=== PATIENT | male | born 1955 | race African-American/Black ===

== ENCOUNTER 2024-04-12 22:24 | Inpatient (IN) | payer MEDICARE ==
[~2024-04-12] VITALS: Ht 177.8 cm; Wt 68.5 kg
[2024-04-12] MEDS ORDERED: QUET25TA PO (22:29)
[2024-04-12] MEDS ORDERED: QUET50TA PO (22:29)
[2024-04-13 00:47] LABS: BASOPHILS # (AUTO) 0.1 K/UL (0.0-0.2); BASOPHILS % (AUTO) 4.3 % (0.0-2.0); EOSINOPHILS # (AUTO) 0.2 K/uL (0.0-0.7); EOSINOPHILS % (AUTO) 5.6 % (0.0-7.0); LYMPHOCYTES # (AUTO) 1.2 K/uL (0.8-4.8); LYMPHOCYTES % (AUTO) 38.4 % (20.5-51.5); MEAN CORPUSCULAR HEMOGLOBIN 28.8 uug (23.8-33.4); MEAN CORPUSCULAR HGB CONC 33 g/dL (32.5-36.3); MEAN CORPUSCULAR VOLUME 88.7 fL (73.0-96.2); MONOCYTES # (AUTO) 0.3 K/uL (0.1-1.30); MONOCYTES % (AUTO) 10.2 % (0.0-11.0); NEUTROPHILS # (AUTO) 1.3 K/uL (1.8-8.9); NEUTROPHILS % (AUTO) 41.5 % (38.5-71.5); PLATELET COUNT (AUTO) 181 K/uL (152-348); RED BLOOD CELL COUNT(AUTO) 4.85 MIL/uL (4.06-5.63); RED CELL DISTRIBUTION WIDTH 13.4 % (12.1-16.2); WHITE BLOOD COUNT (AUTO) 3.1 K/uL (3.6-10.2)
[2024-04-13 01:02] LABS: DIFFERENTIAL COMMENT 1
[2024-04-13 01:17] LABS: ALBUMIN 2.9 g/dL (3.4-5.0); BILIRUBIN,TOTAL 0.5 mg/dL (0.2-1.0); CALCIUM 8.6 mg/dL (8.5-10.1); CREATININE 0.8 mg/dL (0.6-1.3); POTASSIUM 4.1 mmol/L (3.5-5.1); TOTAL PROTEIN, SERUM 6.1 g/dL (6.4-8.2)
[2024-04-13] MEDS ORDERED: PERMETHRIN 5% CREAM 60 GM TUBE TP ONE (05:48)
[2024-04-13] MEDS: PERMETHRIN 5% CREAM 60 GM TUBE TP ONE (06:00)
[2024-04-13] MEDS ORDERED: MAGNESIUM HYDROXIDE 30 ML LIQUID UDC PO PRN (10:00)
[2024-04-13] MEDS ORDERED: ACETAMINOPHEN 500 MG TABLET PO PRN (10:00)
[2024-04-13] MEDS ORDERED: TEMAZEPAM 7.5 MG CAPSULE PO PRN (10:00)
[2024-04-13] MEDS ORDERED: MAG HYDROX/AL HYDROX/SIMETH 30 ML LIQUID UDC PO PRN (10:00)
[2024-04-13] MEDS ORDERED: CLONAZEPAM 0.5 MG TABLET PO PRN (10:00)
[2024-04-13] MEDS: BLOOD SUGAR DIAGNOSTIC 1 EACH STRIP VI ONE (10:06)
[2024-04-13 12:08] VITALS: BP 157/87; TEMP 98.2; O2SAT 98
[2024-04-13 15:10] VITALS: BP 143/95; TEMP 98.4; O2SAT 98
[2024-04-13] MEDS: diphenhydrAMINE 50 MG/1 ML VIAL IM ONE (18:12)
[2024-04-13] MEDS: HALOPERIDOL LACTATE 5 MG/1 ML VIAL IM ONE (18:12)
[2024-04-13 20:00] VITALS: BP 140/90; TEMP 98.1; O2SAT 100
[2024-04-14 08:24] VITALS: BP 144/91; TEMP 97.9; O2SAT 99
[2024-04-14] MEDS: QUETIAPINE FUMARATE 25 MG TABLET PO SCH ×2 (15:48→20:42)
[2024-04-14 16:28] VITALS: BP 126/86; TEMP 98.3; O2SAT 97
[2024-04-14 20:00] VITALS: BP 123/75; TEMP 98.2; O2SAT 99
[2024-04-15 07:53] VITALS: BP 148/98; TEMP 97.8; O2SAT 98
[2024-04-15 16:28] VITALS: BP 144/90; TEMP 97.9; O2SAT 98
[2024-04-15] MEDS: QUETIAPINE FUMARATE 25 MG TABLET PO SCH (16:34)
[2024-04-15 20:02] VITALS: BP 142/88; TEMP 97.8; O2SAT 96
[2024-04-16 08:19] VITALS: BP 126/80; TEMP 97.9; O2SAT 98
[2024-04-16] MEDS ORDERED: CLONAZEPAM 0.5 MG TABLET PO PRN (10:15)
[2024-04-16 11:20] LABS: ALBUMIN 2.9 g/dL (3.4-5.0); BILIRUBIN,TOTAL 1.2 mg/dL (0.2-1.0); CALCIUM 8.5 mg/dL (8.5-10.1); CREATININE 0.8 mg/dL (0.6-1.3); POTASSIUM 3.8 mmol/L (3.5-5.1); TOTAL PROTEIN, SERUM 6.3 g/dL (6.4-8.2)
[2024-04-16] MEDS: QUETIAPINE FUMARATE 25 MG TABLET PO SCH (13:00)
[2024-04-16 16:08] VITALS: BP 134/83; TEMP 97.9; O2SAT 98
[2024-04-16 19:37] VITALS: BP 130/74; TEMP 98.1; O2SAT 96
[2024-04-17 07:50] VITALS: BP 146/97; TEMP 98; O2SAT 96
[2024-04-17 15:42] VITALS: BP 116/81; TEMP 98; O2SAT 96
[2024-04-17 19:57] VITALS: BP 136/76; TEMP 98.1; O2SAT 96
[2024-04-17] MEDS: QUETIAPINE FUMARATE 25 MG TABLET PO SCH (20:37)
[2024-04-18 07:51] VITALS: BP 129/90; TEMP 98; O2SAT 98
[2024-04-18] MEDS ORDERED: LORAZEPAM 1 MG TABLET PO PRN (12:45)
[2024-04-18] MEDS: risperiDONE-M 0.5 MG TAB.RAPDIS PO SCH (13:29)
[2024-04-18 16:34] VITALS: BP 126/78; TEMP 98; O2SAT 99
[2024-04-18 19:59] VITALS: BP 124/72; TEMP 97.9; O2SAT 96
[2024-04-19 07:52] VITALS: BP 141/92; TEMP 98.2; O2SAT 99
[2024-04-19] MEDS: OLANZAPINE ZYDIS 5 MG TAB.RAPDIS PO SCH (10:00)
[2024-04-19] MEDS ORDERED: OLANZAPINE ZYDIS 5 MG TAB.RAPDIS PO PRN (10:00)
[2024-04-19 15:01] VITALS: BP 139/89; TEMP 98; O2SAT 99
[2024-04-20 07:46] VITALS: BP 159/96; TEMP 98; O2SAT 98
[2024-04-20 16:02] VITALS: BP 139/96; TEMP 98.4; O2SAT 100
[2024-04-20 20:00] VITALS: BP 135/95; TEMP 98.1; O2SAT 99
[2024-04-20] MEDS ORDERED: QUETIAPINE FUMARATE 25 MG TABLET PO PRN (20:45)
[2024-04-21] MEDS: QUETIAPINE FUMARATE 25 MG TABLET PO SCH (09:00)
[2024-04-21] MEDS: PERMETHRIN 5% CREAM 60 GM TUBE TP ONE (11:30)
[2024-04-23] MEDS: QUETIAPINE FUMARATE 25 MG TABLET PO SCH ×2 (13:00→20:46)
[2024-04-24 07:40] VITALS: BP 143/109; TEMP 98.2; O2SAT 98
[2024-04-24] MEDS ORDERED: CLONIDINE HCL 0.1 MG TABLET PO PRN (10:45)
[2024-04-24 15:38] VITALS: BP 106/80; TEMP 98.2; O2SAT 100
[2024-04-24] MEDS: QUETIAPINE FUMARATE 25 MG TABLET PO SCH (16:54)
[2024-04-24 19:58] VITALS: BP 126/76; TEMP 98.1; O2SAT 98
[2024-04-25] MEDS: PERMETHRIN 5% CREAM 60 GM TUBE TP ONE (13:33)
[2024-04-25] MEDS: OLANZAPINE 10 MG VIAL IM ONE (14:32)
[2024-04-26 07:46] VITALS: BP 161/114; TEMP 98; O2SAT 96
[2024-04-26] MEDS: risperiDONE-M 0.5 MG TAB.RAPDIS PO SCH (11:09)
[2024-04-26 15:51] VITALS: BP 95/53; TEMP 98; O2SAT 93
[2024-04-27 08:05] VITALS: BP 138/88; TEMP 97.7; O2SAT 100
[2024-04-27] MEDS ORDERED: risperiDONE-M 0.5 MG TAB.RAPDIS PO SCH (09:00)
[2024-04-27] MEDS: risperiDONE-M 0.5 MG TAB.RAPDIS PO SCH ×2 (09:01→17:41)
[2024-04-27 15:12] VITALS: BP 124/80; TEMP 98; O2SAT 100
[2024-04-27 20:04] VITALS: BP 130/78; TEMP 98.1; O2SAT 99
[2024-04-28] MEDS: risperiDONE 2 MG TABLET PO SCH (09:01)
[2024-04-28 16:23] VITALS: BP 129/81; TEMP 98; O2SAT 98
[2024-04-28 20:00] VITALS: BP 125/89; TEMP 97.7; O2SAT 100
[2024-04-29 07:40] VITALS: BP 142/99; TEMP 98.1; O2SAT 98
[2024-04-29 17:00] VITALS: BP 129/85; TEMP 98; O2SAT 98
[2024-04-29 19:57] VITALS: BP 114/77; TEMP 98.1; O2SAT 100
== END 2024-04-30 15:30 | DRG 885 ==
LOC: ER 22:28 → GPS 04-13 09:16
PROVIDERS: ADMIT Psychiatry & Neurology Psychosomatic Medicine; ATTEND Student in an Organized Health Care Education/Training Program
DX: F29 Unspecified psychosis not due to a substance or known physiological condition (principal); E44.0 Moderate protein-calorie malnutrition; Z59.02 Unsheltered homelessness; F25.0 Schizoaffective disorder, bipolar type; Z91.199 Patient's noncompliance with other medical treatment and regimen due to unspecified reason; F12.10 Cannabis abuse, uncomplicated; B85.0 Pediculosis due to Pediculus humanus capitis; Z91.148 Patient's other noncompliance with medication regimen for other reason; Z86.79 Personal history of other diseases of the circulatory system; D72.819 Decreased white blood cell count, unspecified; Z68.21 Body mass index [BMI] 21.0-21.9, adult
CPT/HCPCS: 36415; 85025; 93005; A4606; A4663; J2358